=== PATIENT | female | born 1945 | race Caucasian/White ===

== ENCOUNTER 2017-04-22 13:26 | Inpatient (IN) | payer MEDICARE ==
[~2017-04-22] VITALS: Ht 162.6 cm; Wt 57.7 kg
[2017-04-22] MEDS ORDERED: SODIUM CHLORIDE FLUSH 10ML SYR IVF ONE (14:00)
[2017-04-22] MEDS ORDERED: PLEASE ENTER ALLERGIES MC SCH (14:00)
[2017-04-22] MEDS ORDERED: PLEASE ENTER HEIGHT AND WEIGHT MC SCH (14:00)
[2017-04-22] MEDS ORDERED: SODIUM CHLORIDE 0.9% 1,000ML IVBOLUS ONE (14:00)
[2017-04-22 14:36] LABS: BASOPHILS # (AUTO) 0.03 x10^3/uL (0-0.1); BASOPHILS % (AUTO) 0 % (0-1); EOSINOPHILS # (AUTO) 0.08 x10^3/uL (0-0.4); EOSINOPHILS % (AUTO) 1 % (1-7); LYMPHOCYTES # (AUTO) 1.15 x10^3/uL (1-3.4); LYMPHOCYTES % (AUTO) 16 % (22-44); MD NO; MEAN CORPUSCULAR HEMOGLOBIN 32.7 pg (27.0-34.8); MEAN CORPUSCULAR HGB CONC 33.6 g/dL (32.4-35.8); MEAN CORPUSCULAR VOLUME 97.4 fL (80-100); MEAN PLATELET VOLUME 9.6 fL (7.4-10.4); MONOCYTES # (AUTO) 0.32 x10^3/uL (0.2-0.8); MONOCYTES % (AUTO) 4 % (2-9); NEUTROPHILS # (AUTO) 5.59 x10^3/uL (1.8-6.8); NEUTROPHILS % (AUTO) 78 % (42-75); PLATELET COUNT 100 x10^3/uL (130-400); RED BLOOD COUNT 3.39 x10^6/uL (3.82-5.3); RED CELL DISTRIBUTION WIDTH 15.5 % (9.6-15.2)
[2017-04-22 14:42] LABS: ALBUMIN 3.1 g/dL (3.4-5.0); ANION GAP 9 mmol/L (5-15); CALCIUM 8.6 mg/dL (8.5-10.1); CHLORIDE 116 mmol/L (98-107)
[2017-04-22 14:53] LABS: ALANINE AMINOTRANSFERASE 19 U/L (12-78); ALKALINE PHOSPHATASE 86 U/L (45-117); CREATININE 0.72 mg/dL (0.55-1.02); TOTAL PROTEIN 6.4 g/dL (6.4-8.2)
[2017-04-22 15:07] LABS: CULTURE INDICATED? YES; MICROSCOPIC INDICATED
[2017-04-22] MEDS ORDERED: CEFTRIAXONE PMX 1GM/50ML 50 ML IV ONE (15:30)
[2017-04-22] MEDS ORDERED: ASPI-515 PO (16:04)
[2017-04-22] MEDS ORDERED: B12/1TAB PO (16:04)
[2017-04-22] MEDS ORDERED: CLOB15CR19 TP (16:04)
[2017-04-22] MEDS ORDERED: OXYC10TA6 PO (16:54)
[2017-04-22] MEDS ORDERED: LISI40TA PO (16:54)
[2017-04-22] MEDS ORDERED: QUET25TA5 PO (16:54)
[2017-04-22] MEDS ORDERED: MIRT15TA4 PO (16:54)
[2017-04-22] MEDS ORDERED: OMEP-110 PO (16:54)
[2017-04-22] MEDS ORDERED: METO-95 PO (16:54)
[2017-04-22] MEDS ORDERED: RISP0.253 PO (16:54)
[2017-04-22] MEDS ORDERED: hydrALAzine 20 MG/ML, 1ML IVPush PRN (17:00)
[2017-04-22] MEDS ORDERED: ONDANSETRON 2MG/ML, 2ML IVPush PRN (17:00)
[2017-04-22] MEDS ORDERED: morphine SULFATE 10 MG/ML, 1ML IVPush PRN (17:00)
[2017-04-22] MEDS: SODIUM CHLORIDE 0.9% 1,000 ML IV SCH (18:21)
[2017-04-22 18:22] VITALS: BP 150/94
[2017-04-22 18:54] VITALS: BP 142/89
[2017-04-22] MEDS ORDERED: OMNIPAQUE 350 MG/ML, 100ML BOTTLE ONE (19:20)
[2017-04-22] MEDS: ACETAMINOPHEN 325 MG TABLET PO PRN (19:43)
[2017-04-22] MEDS: ENOXAPARIN 40 MG/0.4 ML SQ SCH (21:39)
[2017-04-22 23:16] VITALS: BP 142/89
[2017-04-23 00:22] VITALS: BP 157/88
[2017-04-23] MEDS: SODIUM CHLORIDE 0.9% 1,000 ML IV SCH ×3 (01:31→18:13)
[2017-04-23 01:42] LABS: ALANINE AMINOTRANSFERASE 18 U/L (12-78); ANION GAP 5 mmol/L (5-15); CALCIUM 8.5 mg/dL (8.5-10.1); CHLORIDE 117 mmol/L (98-107); CREATININE 0.71 mg/dL (0.55-1.02)
[2017-04-23 01:44] LABS: ALKALINE PHOSPHATASE 87 U/L (45-117); TOTAL PROTEIN 5.9 g/dL (6.4-8.2)
[2017-04-23 02:13] LABS: MEAN CORPUSCULAR HEMOGLOBIN 33.4 pg (27.0-34.8); MEAN CORPUSCULAR HGB CONC 34.4 g/dL (32.4-35.8); MEAN CORPUSCULAR VOLUME 97.1 fL (80-100); RED BLOOD COUNT 3.21 x10^6/uL (3.82-5.3); RED CELL DISTRIBUTION WIDTH 15.4 % (9.6-15.2)
[2017-04-23 02:25] LABS: D-DIMER (DIC) 0.44 ug/mlFEU (0.00-0.52); PROTIME 11.2 Seconds (9.6-11.5)
[2017-04-23 02:29] LABS: BASOPHILS # (AUTO) 0.02 x10^3/uL (0-0.1); BASOPHILS % (AUTO) 0 % (0-1); EOSINOPHILS # (AUTO) 0.12 x10^3/uL (0-0.4); EOSINOPHILS % (AUTO) 2 % (1-7); LYMPHOCYTES # (AUTO) 1.18 x10^3/uL (1-3.4); LYMPHOCYTES % (AUTO) 18 % (22-44); MD SCAN; MEAN PLATELET VOLUME 9.6 fL (7.4-10.4); MONOCYTES # (AUTO) 0.37 x10^3/uL (0.2-0.8); MONOCYTES % (AUTO) 6 % (2-9); NEUTROPHILS # (AUTO) 4.96 x10^3/uL (1.8-6.8); NEUTROPHILS % (AUTO) 75 % (42-75); PLATELET COUNT 90 x10^3/uL (130-400)
[2017-04-23 06:51] VITALS: BP 128/77
[2017-04-23] MEDS: ASPIRIN 81 MG TABLET EC PO SCH (09:28)
[2017-04-23 13:02] VITALS: BP 139/86
[2017-04-23 18:36] VITALS: BP 123/79
[2017-04-23] MEDS: ENOXAPARIN 40 MG/0.4 ML SQ SCH (19:18)
[2017-04-23] MEDS: ACETAMINOPHEN 325 MG TABLET PO PRN (22:05)
[2017-04-24 00:23] VITALS: BP 16/67
[2017-04-24] MEDS: SODIUM CHLORIDE 0.9% 1,000 ML IV SCH (01:42)
[2017-04-24 05:21] LABS: ALBUMIN 2.5 g/dL (3.4-5.0); ANION GAP 9 mmol/L (5-15); CALCIUM 8.5 mg/dL (8.5-10.1); CHLORIDE 124 mmol/L (98-107); CREATININE 0.73 mg/dL (0.55-1.02); MEAN CORPUSCULAR HEMOGLOBIN 33.3 pg (27.0-34.8); MEAN CORPUSCULAR HGB CONC 34.3 g/dL (32.4-35.8); MEAN CORPUSCULAR VOLUME 97.2 fL (80-100); MEAN PLATELET VOLUME 9.5 fL (7.4-10.4); PLATELET COUNT 85 x10^3/uL (130-400); RED BLOOD COUNT 2.88 x10^6/uL (3.82-5.3); RED CELL DISTRIBUTION WIDTH 15.3 % (9.6-15.2)
[2017-04-24 05:33] LABS: PREALBUMIN 14.7 mg/dL (20.0-40.0)
[2017-04-24 06:42] LABS: BASOPHILS # (AUTO) 0.03 x10^3/uL (0-0.1); BASOPHILS % (AUTO) 1 % (0-1); EOSINOPHILS # (AUTO) 0.13 x10^3/uL (0-0.4); EOSINOPHILS % (AUTO) 3 % (1-7); LYMPHOCYTES # (AUTO) 1.06 x10^3/uL (1-3.4); LYMPHOCYTES % (AUTO) 21 % (22-44); MD SCAN; MONOCYTES # (AUTO) 0.35 x10^3/uL (0.2-0.8); MONOCYTES % (AUTO) 7 % (2-9); NEUTROPHILS # (AUTO) 3.42 x10^3/uL (1.8-6.8); NEUTROPHILS % (AUTO) 69 % (42-75)
[2017-04-24 07:48] VITALS: BP 121/76
[2017-04-24] MEDS: ASPIRIN 81 MG TABLET EC PO SCH ×2 (09:00→09:57)
[2017-04-24] MEDS: CEFTRIAXONE PMX 1GM/50ML 50 ML IV SCH (09:57)
[2017-04-24] MEDS ORDERED: morphine SULFATE 10 MG/ML, 1ML IVPush PRN (12:00)
[2017-04-24] MEDS: DEXTROSE 5% 1,000 ML IV SCH ×2 (12:09→22:03)
[2017-04-24 14:52] VITALS: BP 144/80
[2017-04-24 19:54] VITALS: BP 136/75
[2017-04-24] MEDS: ENOXAPARIN 40 MG/0.4 ML SQ SCH (21:01)
[2017-04-25 02:57] VITALS: BP 130/77
[2017-04-25 05:11] LABS: MEAN CORPUSCULAR HEMOGLOBIN 33.2 pg (27.0-34.8); MEAN CORPUSCULAR HGB CONC 33.9 g/dL (32.4-35.8); MEAN CORPUSCULAR VOLUME 98.2 fL (80-100); RED BLOOD COUNT 3.09 x10^6/uL (3.82-5.3); RED CELL DISTRIBUTION WIDTH 15.1 % (9.6-15.2)
[2017-04-25 05:14] LABS: ANION GAP 10 mmol/L (5-15); CALCIUM 8.4 mg/dL (8.5-10.1); CHLORIDE 119 mmol/L (98-107)
[2017-04-25 06:02] LABS: BASOPHILS # (AUTO) 0.01 x10^3/uL (0-0.1); BASOPHILS % (AUTO) 0 % (0-1); EOSINOPHILS # (AUTO) 0.16 x10^3/uL (0-0.4); EOSINOPHILS % (AUTO) 2 % (1-7); LYMPHOCYTES # (AUTO) 1.23 x10^3/uL (1-3.4); LYMPHOCYTES % (AUTO) 16 % (22-44); MD SCAN; MEAN PLATELET VOLUME 9.3 fL (7.4-10.4); MONOCYTES # (AUTO) 0.54 x10^3/uL (0.2-0.8); MONOCYTES % (AUTO) 7 % (2-9); NEUTROPHILS # (AUTO) 5.96 x10^3/uL (1.8-6.8); NEUTROPHILS % (AUTO) 75 % (42-75); PLATELET COUNT 90 x10^3/uL (130-400)
[2017-04-25] MEDS: CEFTRIAXONE PMX 1GM/50ML 50 ML IV SCH (07:30)
[2017-04-25 07:55] VITALS: BP 138/86
[2017-04-25] MEDS: DEXTROSE 5% 1,000 ML IV SCH ×2 (08:00→18:00)
[2017-04-25] MEDS: ASPIRIN 81 MG TABLET EC PO SCH (09:00)
[2017-04-25 14:06] VITALS: BP 130/79
[2017-04-25 18:59] VITALS: BP 156/91
[2017-04-25] MEDS: ENOXAPARIN 40 MG/0.4 ML SQ SCH (19:41)
[2017-04-26 02:32] VITALS: BP 144/85
[2017-04-26 05:14] LABS: ANION GAP 9 mmol/L (5-15); CALCIUM 8.7 mg/dL (8.5-10.1); CHLORIDE 121 mmol/L (98-107); CREATININE 0.74 mg/dL (0.55-1.02)
[2017-04-26 07:49] VITALS: BP 150/84
[2017-04-26] MEDS: DEXTROSE 5% 1,000 ML IV SCH ×2 (07:55→17:14)
[2017-04-26] MEDS: CEFTRIAXONE PMX 1GM/50ML 50 ML IV SCH (07:55)
[2017-04-26] MEDS: ASPIRIN 81 MG TABLET EC PO SCH (07:56)
[2017-04-26] MEDS ORDERED: FENTANYL PF 100 MCG/2ML ONE (11:29)
[2017-04-26] MEDS ORDERED: MIDAZOLAM 1 MG/ML, 5ML ONE (11:29)
[2017-04-26 12:39] VITALS: BP 132/83
[2017-04-26] MEDS: RIFAXIMIN 550 MG TABLET PO SCH ×2 (14:00→20:07)
[2017-04-26] MEDS: LACTULOSE 20 GM/30 ML UDC PO SCH ×2 (14:00→20:06)
[2017-04-26 19:56] VITALS: BP 148/87
[2017-04-26] MEDS: ENOXAPARIN 40 MG/0.4 ML SQ SCH (20:06)
[2017-04-27 00:35] VITALS: BP 147/85
[2017-04-27 05:09] LABS: ANION GAP 7 mmol/L (5-15); CALCIUM 8.1 mg/dL (8.5-10.1); CHLORIDE 115 mmol/L (98-107)
[2017-04-27 05:10] LABS: CREATININE 0.67 mg/dL (0.55-1.02)
[2017-04-27 07:20] VITALS: BP 145/89
[2017-04-27] MEDS: CEFTRIAXONE PMX 1GM/50ML 50 ML IV SCH (07:35)
[2017-04-27] MEDS: ASPIRIN 81 MG TABLET EC PO SCH (07:38)
[2017-04-27] MEDS: RIFAXIMIN 550 MG TABLET PO SCH ×2 (07:38→21:06)
[2017-04-27] MEDS: LACTULOSE 20 GM/30 ML UDC PO SCH ×2 (07:38→21:00)
[2017-04-27] MEDS: DEXTROSE 5% 1,000 ML IV SCH (07:40)
[2017-04-27 12:25] VITALS: BP 150/91
[2017-04-27 20:30] VITALS: BP 131/77
[2017-04-27] MEDS: ENOXAPARIN 40 MG/0.4 ML SQ SCH (21:06)
[2017-04-28 01:14] VITALS: BP 122/77
[2017-04-28 07:00] VITALS: BP 146/1
[2017-04-28] MEDS: CEFTRIAXONE PMX 1GM/50ML 50 ML IV SCH (07:31)
[2017-04-28] MEDS: ASPIRIN 81 MG TABLET EC PO SCH (07:34)
[2017-04-28] MEDS: RIFAXIMIN 550 MG TABLET PO SCH (07:34)
[2017-04-28] MEDS: LACTULOSE 20 GM/30 ML UDC PO SCH (07:35)
[2017-04-28 13:00] VITALS: BP 128/83
[2017-04-28] MEDS ORDERED: LISI-170 PO (14:52)
[2017-04-28] MEDS ORDERED: METO-93 PO (14:52)
== END 2017-04-28 16:00 | disposition home or self-care (01) | DRG 70 ==
LOC: ED 15:12 → EDIP 15:13 → 3NE 17:46
PROVIDERS: ADMIT Hospitalist; ATTEND Hospitalist
PROC: 0T9B70Z Drainage of Bladder with Drainage Device, Via Natural or Artificial Opening (ICD-10-PCS; principal; 2017-04-22)
DX: G93.41 Metabolic encephalopathy (principal); E43 Unspecified severe protein-calorie malnutrition; E87.0 Hyperosmolality and hypernatremia; D69.6 Thrombocytopenia, unspecified; G30.9 Alzheimer's disease, unspecified; I11.9 Hypertensive heart disease without heart failure; F02.80 Dementia in other diseases classified elsewhere, unspecified severity, without behavioral disturbance, psychotic disturbance, mood disturbance, and anxiety; N39.0 Urinary tract infection, site not specified; B96.20 Unspecified Escherichia coli [E. coli] as the cause of diseases classified elsewhere; D64.9 Anemia, unspecified; F32.9 Major depressive disorder, single episode, unspecified; K21.9 Gastro-esophageal reflux disease without esophagitis; Z79.82 Long term (current) use of aspirin; Z68.21 Body mass index [BMI] 21.0-21.9, adult
CPT/HCPCS: 36415; 71010; 74177; 74181; 80048; 80053; 81001; 82040; 82140; 83605; 83690; 83735; 84100; 84134; 84443; 85025; 85049; 85379; 85384; 85610; 85730; 86301; 87040; 87077; 87086; 87186; 93005; 99285; J0696; J1650; J2250; J3010; J7070; Q9967; 92523-GN; J7030

== ENCOUNTER 2018-01-06 15:06 | Inpatient (IN) | payer MEDICARE ==
[~2018-01-06] VITALS: Ht 154.9 cm; Wt 56.8 kg
[~2018-01-06 15:06] MED LIST: ASPI-515 PO; B12/1TAB PO; CLOB15CR19 TP; LISI-170 PO; LISI40TA PO; METO-93 PO; METO-95 PO; MIRT15TA4 PO; OMEP-110 PO; OXYC10TA6 PO; QUET25TA5 PO; RISP0.253 PO
[2018-01-06 15:46] LABS: BASOPHILS # (AUTO) 0.02 x10^3/uL (0-0.1); BASOPHILS % (AUTO) 0 % (0-1); EOSINOPHILS # (AUTO) 0.34 x10^3/uL (0-0.4); EOSINOPHILS % (AUTO) 4 % (1-7); LYMPHOCYTES # (AUTO) 1.13 x10^3/uL (1-3.4); LYMPHOCYTES % (AUTO) 14 % (22-44); MD NO; MEAN CORPUSCULAR HEMOGLOBIN 34.2 pg (27.0-34.8); MEAN CORPUSCULAR HGB CONC 34.1 g/dL (32.4-35.8); MEAN CORPUSCULAR VOLUME 100.3 fL (80-100); MEAN PLATELET VOLUME 9.8 fL (7.4-10.4); MONOCYTES # (AUTO) 0.92 x10^3/uL (0.2-0.8); MONOCYTES % (AUTO) 11 % (2-9); NEUTROPHILS # (AUTO) 5.95 x10^3/uL (1.8-6.8); NEUTROPHILS % (AUTO) 71 % (42-75); PLATELET COUNT 114 x10^3/uL (130-400); RED BLOOD COUNT 3.43 x10^6/uL (3.82-5.3); RED CELL DISTRIBUTION WIDTH 13.9 % (9.6-15.2)
[2018-01-06 15:50] LABS: INTERNATIONAL NORMALIZED RATIO 1.08 (0.93-1.1); PROTHROMBIN TIME 11.2 Seconds (9.6-11.5)
[2018-01-06 15:51] LABS: ALANINE AMINOTRANSFERASE 21 U/L (12-78); ALBUMIN 3.2 g/dL (3.4-5.0); ANION GAP 8 mmol/L (5-15); CALCIUM 9.1 mg/dL (8.5-10.1); CHLORIDE 120 mmol/L (98-107); CREATININE 1.24 mg/dL (0.55-1.02)
[2018-01-06 15:53] LABS: ALKALINE PHOSPHATASE 128 U/L (45-117); BILIRUBIN,TOTAL 0.7 mg/dL (0.2-1.0); TOTAL PROTEIN 6.7 g/dL (6.4-8.2)
[2018-01-06 16:03] LABS: MICROSCOPIC INDICATED
[2018-01-06 16:04] LABS: CULTURE INDICATED? YES
[2018-01-06] MEDS ORDERED: KETOROLAC 30 MG/1 ML ONE (17:14)
[2018-01-06] MEDS ORDERED: CEFTRIAXONE PMX 1GM/50ML 50 ML ONE (17:14)
[2018-01-06] MEDS ORDERED: KETOROLAC 30 MG/1 ML IVPush ONE (17:30)
[2018-01-06] MEDS ORDERED: CEFTRIAXONE 1,000 MG in SODIUM CHLORIDE 0.9% 50 ML IV ONE (17:30)
[2018-01-06] MEDS ORDERED: QUET50TA5 PO (17:37)
[2018-01-06] MEDS ORDERED: OMEP-110 PO (17:37)
[2018-01-06] MEDS ORDERED: OXYC5TAB3 PO (17:37)
[2018-01-06] MEDS ORDERED: METO50TA82 PO (17:37)
[2018-01-06] MEDS ORDERED: LOPE2CAP PO (17:37)
[2018-01-06] MEDS ORDERED: CALC215T2 PO (17:37)
[2018-01-06] MEDS ORDERED: ASCO500T12 PO (17:37)
[2018-01-06] MEDS ORDERED: LISI-170 PO (17:37)
[2018-01-06] MEDS ORDERED: AMLO5TAB7 PO (17:37)
[2018-01-06] MEDS ORDERED: CHOL2000 PO (17:37)
[2018-01-06] MEDS ORDERED: BISA5TAB5 PO (17:37)
[2018-01-06] MEDS ORDERED: MAGN400O7 PO (17:37)
[2018-01-06] MEDS ORDERED: LIPA1CAP61 PO (17:37)
[2018-01-06] MEDS ORDERED: ACET-1770 PO (17:37)
[2018-01-06] MEDS ORDERED: FERR-51 PO (17:37)
[2018-01-06] MEDS ORDERED: LAMO25TA PO (17:37)
[2018-01-06] MEDS ORDERED: MAG355OR35 PO (17:41)
[2018-01-06] MEDS ORDERED: SENN-87 PO (17:41)
[2018-01-06] MEDS ORDERED: PHARMACY MAY ADJ FOR RENAL FX MC PRN (18:00)
[2018-01-06] MEDS ORDERED: POLYETHYLENE GLYCOL 17 GM PACKET PO PRN (18:00)
[2018-01-06] MEDS ORDERED: ONDANSETRON 2MG/ML, 2ML IVPush PRN (18:00)
[2018-01-06] MEDS ORDERED: DOCUSATE 100 MG CAPSULE PO PRN (18:00)
[2018-01-06] MEDS ORDERED: ONDANSETRON ODT 4 MG PO PRN (18:00)
[2018-01-06] MEDS ORDERED: ACETAMINOPHEN 325 MG TABLET PO PRN (18:00)
[2018-01-06] MEDS ORDERED: LABETALOL 5MG/ML, 20ML IVPush PRN (18:00)
[2018-01-06] MEDS ORDERED: BISACODYL 10 MG SUPP PR PRN (18:00)
[2018-01-06] MEDS ORDERED: morphine SULFATE 10 MG/ML, 1ML IVPush PRN (18:00)
[2018-01-06] MEDS ORDERED: HYDROcodone/APAP 5/325 TABLET PO PRN (18:00)
[2018-01-06] MEDS ORDERED: hydrALAzine 20 MG/ML, 1ML IVPush PRN (18:00)
[2018-01-06] MEDS: CEFTRIAXONE 1,000 MG in SODIUM CHLORIDE 0.9% 50 ML IV SCH (18:00)
[2018-01-06 18:41] VITALS: BP 107/71
[2018-01-06] MEDS: PANCRELIPASE 24,000 CAPSULE.DR PO SCH (21:13)
[2018-01-06] MEDS: D5%-0.45% NACL 1,000 ML IV SCH (21:14)
[2018-01-06] MEDS: LAMOTRIGINE 25 MG TABLET PO SCH (21:14)
[2018-01-06] MEDS: HEPARIN 5,000 UNITS/ML, 1ML SQ SCH (21:15)
[2018-01-06] MEDS: QUETIAPINE 25MG TABLET PO SCH (21:15)
[2018-01-06 22:09] LABS: CLOSTRIDIUM DIFFICILE ANTIGEN NEGATIVE; CLOSTRIDIUM DIFFICILE TOXIN NEGATIVE (Negative)
[2018-01-07 01:56] VITALS: BP 76/47
[2018-01-07 02:48] VITALS: BP 99/63
[2018-01-07 05:52] LABS: ALBUMIN 2.8 g/dL (3.4-5.0); ANION GAP 7 mmol/L (5-15); CALCIUM 8.5 mg/dL (8.5-10.1); CHLORIDE 124 mmol/L (98-107)
[2018-01-07] MEDS: HEPARIN 5,000 UNITS/ML, 1ML SQ SCH ×3 (05:55→21:15)
[2018-01-07] MEDS: D5%-0.45% NACL 1,000 ML IV SCH (05:55)
[2018-01-07 05:57] LABS: ALANINE AMINOTRANSFERASE 19 U/L (12-78); ALKALINE PHOSPHATASE 109 U/L (45-117); BILIRUBIN,TOTAL 0.6 mg/dL (0.2-1.0); CREATININE 0.88 mg/dL (0.55-1.02); TOTAL PROTEIN 5.9 g/dL (6.4-8.2)
[2018-01-07 05:58] LABS: MEAN CORPUSCULAR HEMOGLOBIN 33.9 pg (27.0-34.8); MEAN CORPUSCULAR VOLUME 99.5 fL (80-100); RED BLOOD COUNT 3.06 x10^6/uL (3.82-5.3)
[2018-01-07 06:28] LABS: MD YES; MEAN PLATELET VOLUME 9.7 fL (7.4-10.4); PLATELET COUNT 87 x10^3/uL (130-400)
[2018-01-07 06:31] LABS: <PLATELET ESTIMATE> DECREASED; <PLT MORPHOLOGY> NORMAL PLT MORPH; <RBC MORPHOLOGY> NORMAL; EOS#(MANUAL) 0.31 x10^3/uL (0.0-0.4); EOS% (MANUAL) 6 % (1-7); LYMPH#(MANUAL) 0.41 x10^3/uL (1-3.4); LYMPHS% (MANUAL) 8 % (22-44)
[2018-01-07 06:40] LABS: BAND#(MANUAL) 2.65 x10^3/uL; BANDS%(MANUAL) 52 % (0-7); SEG#(MANUAL) 1.73 x10^3/uL (1.8-6.8); SEGS% (MANUAL) 34 % (42-75)
[2018-01-07] MEDS ORDERED: PANCRELIPASE 24,000 CAPSULE.DR PO SCH (08:00)
[2018-01-07] MEDS ORDERED: DEXTROSE 5% 1,000 ML IV SCH (08:00)
[2018-01-07] MEDS: PANCRELIPASE 24,000 CAPSULE.DR PO SCH ×3 (08:46→17:44)
[2018-01-07] MEDS: ASPIRIN 81 MG TABLET EC PO SCH (08:46)
[2018-01-07] MEDS: LAMOTRIGINE 25 MG TABLET PO SCH ×2 (08:46→21:15)
[2018-01-07 09:15] VITALS: BP 110/67
[2018-01-07 13:20] VITALS: BP 118/75
[2018-01-07] MEDS: CEFTRIAXONE 1,000 MG in SODIUM CHLORIDE 0.9% 50 ML IV SCH (17:44)
[2018-01-07 20:00] VITALS: BP 126/76
[2018-01-07] MEDS: QUETIAPINE 25MG TABLET PO SCH (21:15)
[2018-01-08 02:00] VITALS: BP 108/66
[2018-01-08 04:27] LABS: ANION GAP 3 mmol/L (5-15); CALCIUM 8.7 mg/dL (8.5-10.1); CHLORIDE 126 mmol/L (98-107); CREATININE 0.75 mg/dL (0.55-1.02)
[2018-01-08] MEDS: HEPARIN 5,000 UNITS/ML, 1ML SQ SCH ×2 (05:20→12:53)
[2018-01-08 07:44] VITALS: BP 122/76
[2018-01-08] MEDS: PANCRELIPASE 24,000 CAPSULE.DR PO SCH ×3 (08:45→16:25)
[2018-01-08] MEDS: ASPIRIN 81 MG TABLET EC PO SCH (08:45)
[2018-01-08] MEDS: LAMOTRIGINE 25 MG TABLET PO SCH (08:46)
[2018-01-08] MEDS ORDERED: LOPERAMIDE 2 MG CAPSULE PO ONE (09:30)
[2018-01-08] MEDS ORDERED: LOPERAMIDE 2 MG CAPSULE PO PRN (09:30)
[2018-01-08 13:17] VITALS: BP 122/77
[2018-01-08] MEDS ORDERED: CEFD300C37 PO (15:04)
[2018-01-08] MEDS: CEFTRIAXONE 1,000 MG in SODIUM CHLORIDE 0.9% 50 ML IV SCH (16:25)
== END 2018-01-08 17:46 | disposition home or self-care (01) | DRG 371 ==
LOC: ED 17:04 → EDIP 17:05 → ED 17:45 → 4WST 18:18
PROVIDERS: ADMIT Internal Medicine; ATTEND Internal Medicine
DX: A04.9 Bacterial intestinal infection, unspecified (principal); N17.0 Acute kidney failure with tubular necrosis; I31.3 Pericardial effusion (noninflammatory); E87.2 Acidosis; N13.6 Pyonephrosis; I10 Essential (primary) hypertension; K21.9 Gastro-esophageal reflux disease without esophagitis; F32.9 Major depressive disorder, single episode, unspecified; G47.00 Insomnia, unspecified; G56.03 Carpal tunnel syndrome, bilateral upper limbs; F03.90 Unspecified dementia, unspecified severity, without behavioral disturbance, psychotic disturbance, mood disturbance, and anxiety; E87.5 Hyperkalemia; D53.9 Nutritional anemia, unspecified; Z87.442 Personal history of urinary calculi; Z90.5 Acquired absence of kidney; Z90.710 Acquired absence of both cervix and uterus; Z98.84 Bariatric surgery status; Z91.040 Latex allergy status; Z90.49 Acquired absence of other specified parts of digestive tract
CPT/HCPCS: 36415; 74176; 80048; 80053; 81001; 83605; 83690; 83735; 84100; 85025; 85610; 87046; 87077; 87086; 87186; 87324; 87427; 89055; 93005; 93306; 96374; 96375; 99285; G0378; J0696; J1644; J1885; J7070; Q0162

== ENCOUNTER 2020-06-14 18:03 | Emergency (ER) | payer MEDICARE ==
[~2020-06-14] VITALS: Ht 157.5 cm; Wt 54.0 kg
[~2020-06-14 18:03] MED LIST changes: +ACET-1770 PO; +AMLO-150 PO; +ASCO500T93 PO; -ASPI-515 PO; +ASPI-963 PO; +BISA5TAB5 PO; +CALC215T8 PO; +CEFD300C37 PO; +CHOL2000 PO; +FERR-51 PO; +LAMO25TA9 PO; +LIPA1CAP61 PO; -LISI40TA PO; +LISI40TA9 PO; +LOPE2CAP PO; +MAG355OR35 PO; +MAGN400O7 PO; +METO50TA82 PO; +MIRT-34 PO; -MIRT15TA4 PO; +OXYC5TAB98 PO; +QUET50TA5 PO; +SENN-190 PO
--- NOTE | 2020-06-14 18:27 | NUR ---
PT IS A 75F BIB EMS COMPLAINING OF SLIGHT WEAKNESS IN HER LEFT LEG. SHE LIVES IN A [facility]. EMS STATES SHE PASSED ALL THE STROKE SCREENINGS. SHE HAS A HX OF TIA ABOUT A MONTH AGO AND A HX OF HTN, GASTRECTOMY, AND NEPHRECTOMY. PT PLACED ON COMMODE UPON ARRIVAL. SHE WAS ABLE TO STAND ON HER OWN AND TRANSFER TO THE COMMODE. URINE COLLECTED AND SENT TO LAB. PROVIDER AT BEDSIDE FOR EVAL. CONTINUOUS SP02 AND CYCLING VITALS IN PLACE. CALL LIGHT WITHIN REACH.
[2020-06-14] MEDS ORDERED: SODIUM CHLORIDE FLUSH 10ML SYR IVF ONE (19:00)
--- NOTE | 2020-06-14 19:02 | NUR ---
REPORT TO YOAN SCANLON
[2020-06-14 19:12] LABS: BASOPHILS % (AUTO) 0 % (0-1); EOSINOPHILS % (AUTO) 1 % (1-7); LYMPHOCYTES % (AUTO) 5 % (22-44); MEAN CORPUSCULAR HEMOGLOBIN 35.4 pg (27.0-34.8); MEAN CORPUSCULAR HGB CONC 34.9 g/dL (32.4-35.8); MEAN PLATELET VOLUME 8.7 fL (7.4-10.4); MONOCYTES % (AUTO) 8 % (2-9); NEUTROPHILS % (AUTO) 87 % (42-75); PLATELET COUNT 80 x10^3/uL (130-400); RED BLOOD COUNT 3.37 x10^6/uL (3.82-5.3); RED CELL DISTRIBUTION WIDTH 12.9 % (9.6-15.2)
[2020-06-14 19:17] LABS: MICROSCOPIC INDICATED
[2020-06-14 19:26] LABS: ALBUMIN 3.1 g/dL (3.4-5.0); ANION GAP 8 mmol/L (5-15); CALCIUM 9.3 mg/dL (8.5-10.1); CHLORIDE 106 mmol/L (98-107)
[2020-06-14 19:29] LABS: ALANINE AMINOTRANSFERASE 26 U/L (12-78); ALKALINE PHOSPHATASE 70 U/L (45-117); BILIRUBIN,TOTAL 1.4 mg/dL (0.2-1.0); CREATININE 0.94 mg/dL (0.55-1.02); TOTAL PROTEIN 6.8 g/dL (6.4-8.2)
[2020-06-14 19:34] LABS: MD SCAN
[2020-06-14] MEDS ORDERED: CEFTRIAXONE PMX 1GM/50ML 50 ML ONE (20:14)
[2020-06-14] MEDS ORDERED: IBUPROFEN 200 MG TABLET ONE (20:14)
[2020-06-14] MEDS ORDERED: SODIUM CHLORIDE 0.9% 1,000ML IVBOLUS ONE (20:30)
[2020-06-14] MEDS ORDERED: IBUPROFEN 600 MG TABLET PO ONE (20:30)
[2020-06-14] MEDS ORDERED: CEFTRIAXONE PMX 1GM/50ML 50 ML IVPB ONE (20:30)
[2020-06-14] MEDS ORDERED: IBUPROFEN 200 MG TABLET PO ONE (20:30)
--- NOTE | 2020-06-14 21:02 | NUR ---
SPOKE WITH PATIENT'S SISTER. PT STATES OK TO GIVE INFO TO HER. UPDATED HER THAT PT IS GOING TO BE GOING HOME. PT RESTING IN GURNEY, ABX AND FLUIDS STILL RUNNING
[2020-06-14 21:29] VITALS: BP 107/65
--- NOTE | 2020-06-14 21:39 | NUR ---
PT INDEPENDENT GETTING DRESSED AND AMBULATING. PT GIVEN TAXI VOUCHER BACK HOME TO ASSISTED LIVING. PT STATES PEOPLE ALWAYS AT THE FACILITY AND WILL LET HER IN WHEN SHE GETS THERE. PT'S SISTER COMMUNICATING WITH FACILITY WELL.
== END 2020-06-14 21:55 | disposition home or self-care (01) ==
LOC: ED 19:35
DX: N30.01 Acute cystitis with hematuria (principal); R53.1 Weakness; R41.0 Disorientation, unspecified; R42 Dizziness and giddiness
CPT/HCPCS: 36415; 80053; 81001; 83690; 85025; 87077; 87086; 87186; 96365; 99284; J0696; J7030